=== PATIENT | male | born 1955 | race Caucasian/White ===

== ENCOUNTER → 2018-08-21 | Outpatient (CLI) | payer OTHER ==
--- NOTE | 2018-08-21 16:00 | PCVCIMAG ---
APPROVED REPORT Study performed: 08/21/2018 12:56:47 Exam: Stress Echocardiogram Indication: Abn TM,HTN,DSLP,DM Patient Location: Echo lab Stress Nurse: Destini Cabrera RN Room #: 2 Status: routine Ht: 5 ft 6 in HR: 60 bpm BP: 140/62 mmHg Rhythm: NSR Medical History Medical History: Diabetes, Hyperlipidemia, HTN Cardiac Risk Factors: HTN, Hyperlipidemia, DM Previous Cardiac Procedures: NONE Pretest Chest Pain Characteristics: No chest pain Procedure The patient underwent an Exercise Stress Test using the Bryon Protocol. Blood pressure, heart rate, and EKG were monitored. An Echocardiogram was performed by wellfield technician in four stages in quad fashion. At peak stress, four selected images were obtained and placed side by side with resting images for comparison. Stress Test Details Stress Test: Exercise stress testing was performed using a Bryon protocol. HR Resting HR: 60 bpmMax Heart Rate (APMHR): 160 bpm Max HR Achieved: 166 bpmTarget HR (85% APMHR): 136 bpm % of APMHR: 103 Recovery HR: 90 bpm HR response to stress: Normal HR response to stress BP Resting BP: 140/62 mmHg Max BP: 220/76 mmHg Recovery BP: 170/70 mmHg ECG Resting ECG: Sinus Rhythm Stress ECG: Sinus Rhythm, NSSTT changes ST Change: Non-ischemic Maximum ST Deviation: 0.5 mm Arrhythmia: RARE PVC Recovery ECG: Sinus Rhythm Recovery ST Change: Non-ischemic Recovery ST Deviation: 0.5 mm Recovery Arrhythmia: None Clinical Reason for Termination: Maximal effort Stress Symptoms: NONE Exercise duration: 9 min 30 sec Highest Stage Achieved: Stage 4: 4.2 mph at 16% grade. Exercise capacity: 11.7 METs Overall Exercise Capacity for Age: Good Scale: Active Angina Score: None No complications. Stress ECG Conclusion The patient exercised according to the BRYON protocol for 9:30 mins; achieving a work level of 11.7 METS. The resting heart rate of 60 bpm ania to a maximum heart rate of 166 bpm. This value represent 103 % of the maximal, age-predicted heart rate. The resting blood pressure of 140/62 mmHg, ania to a maximum blood pressure of 220/76 mmHg. The exercise test was stopped due to fatigue. Lopes Treadmill Score is 6.5 which is Low risk. Pre-Stress Echo The resting Echocardiogram showed normal left ventricular contractility with an estimated Ejection Fraction of about 55-60%. Normal wall motion in all segments on baseline images. Post-Stress Echo The stress Echocardiogram showed normal left ventricular contractility with an estimated Ejection Fraction of about 65-70%. Normal augmentation of wall motion in all segments on post stress images. Clinical No clinical or ECG evidence for ischemia. Conclusion Clinical Response: Non-ischemic Exercise Capacity: Average Stress ECG Response: Non-ischemic Stress Echo Images: Non-ischemic No clinical, EKG or echocardiographic evidence for ischemia. No echocardiographic evidence for exercise induced ischemia. Normal stress echocardiogram with maximal exercise stress. No prior study available for comparison. <Conclusion> No clinical, EKG or echocardiographic evidence for ischemia. No echocardiographic evidence for exercise induced ischemia. Normal stress echocardiogram with maximal exercise stress.
== END | disposition home or self-care (01) ==
LOC: PCVCIMAG 13:40
PROVIDERS: ATTEND Internal Medicine
DX: E11.9 Type 2 diabetes mellitus without complications (principal); R94.39 Abnormal result of other cardiovascular function study
CPT/HCPCS: 93325; 93351